=== PATIENT | male | born 1945 | race Caucasian/White ===

== ENCOUNTER 2018-11-28 06:31 | Observation (INO) | payer MEDICARE ==
[~2018-11-28] VITALS: Ht 180.3 cm; Wt 114.7 kg
--- NOTE | ~2018-11-28 | P ---
[facility] [place] [address] PROCEDURE REPORT Name: HANNA ONTIVEROS Room #: 219-P [facility]..#: [id number] Admission: 11/28/18 Attend Phys: Jay Field MD Discharge: Date of : 41 Report #: [id number] THIS REPORT FOR: //name// CC: Jay Field Eugenio Mantilla PREOPERATIVE DIAGNOSES: 1. Atrial fibrillation. 2. Atrial flutter. PROCEDURES PERFORMED: 1. Atrial fibrillation ablation, CPT code 85663. 2. 3D mapping EP, CPT code 81163. 3. Intracardiac echo, CPT code 77490. 4. Focal ablation, CPT code 42404. ANESTHESIA: The patient underwent general anesthesia with no anesthesia related complications. DESCRIPTION OF PROCEDURE: The patient underwent informed consent. We discussed the details of the procedure including the risks, which include but not limited to bleeding, infection, vascular damage, cardiac perforation. He understood these risks and is willing to proceed. The patient was brought to the EP laboratory in fasting and sedated state, prepped and draped in sterile fashion. A Bowling catheter was easily positioned with no issues given his history of ureteral stricture. Next, I obtained access to the right femoral vein x 3, placing an 8, 9 and 7-Portuguese short sheath in the right femoral vein. Given the patient's underlying bradycardia, I decided to put a 5-Portuguese short sheath in the left femoral vein and a quadripolar catheter into the right ventricle for backup pacing if necessary. The patient at baseline was in atrial fibrillation with a ventricular cycle length of 1720 milliseconds, QRS duration 85 milliseconds, QT interval 510 milliseconds. Next, the patient was systemically heparinized and a transseptal was easily performed using an SL1 sheath and a Bottineau needle. I exchanged for the cryo sheath and placed the cryoballoon into the left atrium. Prior to that, I used a Lasso catheter to obtain a 3D geometry of the left atrium and created a voltage map. The patient had a prior ablation performed in 2013 by another customer engagement representative and an initial voltage map showed that all four veins were reconnected. Therefore, I started by isolating the left superior pulmonary vein. This vein isolated during the first freeze within 58 seconds. I performed a 4-minute followed by 3-minute freeze. I then turned my attention to the left inferior pulmonary vein. I performed two 4-minute freezes. The first freeze isolated the vein within 87 seconds. I turned my attention to the right superior pulmonary vein. While isolating the right-sided veins, phrenic nerve pacing was performed with the decapolar catheter placed in the right subclavian [address] [address] PROCEDURE REPORT Name: WESTONHANNA Lakhani Room #: 219-P [facility] M.R.#: [id number] Admission: 11/28/18 Attend Phys: Jay Field MD Discharge: Date of : 41 Report #: [id number]. The right superior pulmonary vein underwent a 4 minute followed by 3-minute freeze. The vein isolated within 25 seconds of the first freeze. I then turned my attention to the left inferior pulmonary vein and performed a single 4-minute freeze as this vein isolated within 30 seconds. Next, I removed the cryoablation balloon and created a voltage map of the left atrium, which showed we had created a wide circumferential ablation of the 4 pulmonary veins. There was still some small area of signal left at the roof region just approximating the left superior pulmonary vein. I therefore placed the cryoballoon back in the left atrium and performed 3 freezes, which were each of 180 seconds duration. I then remapped the left atrium and this demonstrated that we had isolated the roof region as well. As such, the patient underwent cardioversion with restorationism of sinus rhythm. Post-ablation, he was in sinus rhythm with sinus cycle length of 1036 milliseconds, RI interval 200 milliseconds, QRS duration 89 milliseconds, QT interval 510 milliseconds. As such using intracardiac ultrasound, I verified there was no pericardial effusion. The patient received 100 mg of protamine and his sheaths were pulled. A [id number] suture was performed in the right groin region. CONCLUSIONS: 1. Successful AFib ablation with wide circumferential ablation of the pulmonary veins. 2. Successful creation of a left atrial roofline. By: [id number] Jay Field MD /nt
[~2018-11-28 06:31] MED LIST: ACETAMINOPHEN325 M1 PO; ACIPHEX 20 MG T20 MG PO; ALLOPURINOL 30300 M1 PO; AMITRIPTYLINE H10 M3 PO; ARIXTRA; ARIXTRA SQ; ASPIRIN EC325 M1 PO; ASPIRIN EC325 MG PO; ASPIRIN325; ASPIRIN325 PO; ASPIRIN81 M2; AUGMENTIN 875-1 EACH PO; B12 PO; CALCIUM 500 +1 EAC5 PO; CALCIUM CITRAT1 EAC4 PO; CASODEX 50 MG T50 M1 PO; CATAPRES-TTS 10.1 MG TD; CATAPRES0.1 MG PO; CENTRUM SILVER1 EAC2 PO; CEPACOL SORE T1 EAC2 MM; CLONIDINE HCL0.1 MG PO; COLACE100 MG PO; COZAAR 25 MG TA25 M1 PO; CRESTOR10 MG PO; CRESTOR20 MG PO; CRESTOR5 MG PO; CYMBALTA30 MG PO; DEPO-PROVER150 MG/M1 INJECTION; DEPO-PROVERA; DITROPAN XL10 M1 PO; ELIQUIS5 MG PO; FISH OIL 1,001000 M1 PO; FLEXERIL PO; FLONASE 0.05%50 MCG NASAL; FOLBIC RF TABL1 EACH PO; IBUPROFEN 400400 M2 PO; IRON325 PO; KEFLEX500 M1 PO; KLOR-CON 1010 MEQ PO; KLOR-CON M2020 MEQ PO; LASIX 20 MG TAB20 MG PO; LISINOPRIL20 MG PO; LISINOPRIL5 MG PO; LIVALO2 MG PO; LUNESTA2 MG PO; LUPRON DEPOT11.25 MG IM; LUPRON DEPOT45 MG; LUPRON IJ; LYRICA 75 MG CA75 MG PO; MACROBID 100 M100 M1 PO; METFORMIN HCL500 MG PO; MIRALAX17 GM PO; MIRAPEX1 MG PO; MORPHINE SULFAT15 M3 PO; MORPHINE SULFAT30 M1 PO; MS CONTIN15 MG PO; MULTAQ400 MG PO; MULTIVITAMINS1 EAC7 PO; NEURONTIN 300300 M1 PO; NITROSTAT0.4 MG SL; NORVASC10 MG PO; NORVASC2.5 MG PO; OMEPRAZOLE40 MG PO; OXYCODONE HCL 55 MG PO; OXYIR5 MG; PACERONE 200 M200 M1 PO; PAXIL20 MG PO; PERCOCET 10-321 EACH PO; PERCOCET 5-3251 EACH; PERCOCET 5-3251 EACH PO; PERCOCET PO; PRADAXA150 MG PO; PROSTATE CANCER; REMERON15 MG PO; ROUVASTATIN PO; RYTHMOL150 MG PO; SORINE 80 MG TA80 M1 PO; STOOL SOFTENER1 EAC2 PO; TOPROL XL25 MG PO; TRAMADOL HCL50 MG PO; TYLENOL325 MG PO; VITAMIN B12 PO; VITAMIN D1000 UNI1 PO; WARFARIN PO; XARELTO10 MG PO; XARELTO15 MG PO; XARELTO20 MG PO; [UNRECOGNIZED DRUG - OTHER] PO
[2018-11-28 07:08] LABS: ABSOLUTE NEUTROPHILS 3.8 thou/uL (1.4-8.2); BASOPHILS 0.6 % (0.0-2.0); EOSINOPHILS 2.1 % (0.0-3.0); HEMATOCRIT 40.9 % (42.0-52.0); HEMOGLOBIN 13.5 gm/dL (14.0-18.0); LYMPHOCYTES 26.7 % (24.0-44.0); MCH 29.3 pg (26.0-34.0); MCHC 33.1 g/dL (28.0-37.0); MCV 88.5 fL (80.0-100.0); MONOCYTES 11.5 % (1.0-8.0); PLATELET COUNT 170 thou/uL (150-400); POLYS 59.1 % (36.0-66.0); RBC 4.62 mil/uL (4.50-6.00); RDW 16.7 % (10.5-14.5); WBC 6.4 thou/uL (4.0-11.0)
[2018-11-28 07:12] VITALS: BP 142/79
[2018-11-28 07:15] LABS: CALCIUM 9.3 mg/dL (8.5-10.1)
[2018-11-28 07:31] LABS: INR 1.1
[2018-11-28 07:43] LABS: APTT 26.1 Seconds (24.5-32.8)
--- NOTE | 2018-11-28 12:15 | NUR ---
RECEIVED FROM [facility] VSS NSR R AND L GROIN SITES WITH NO HEMATOMA, BRUISING, OR DRAINAGE. NO BRUIT HEARD. SEE DATA FLOW SHEET FOR FREQUENT VS AND GROIN CHECKS. PT INSTRUCTED FOR BR X 6 HOURS AND IS AWARE. WILL CONTINUE TO MONITER AND CARE FOR PT PER PLAN PER PLAN OF CARE
[2018-11-28 12:45] VITALS: BP 143/73
--- NOTE | 2018-11-28 15:32 | NUR ---
VSS REMAINS NSR, LUNGS CLEAR, RA SAT IS 96%, R /L GROIN SITES INTACT, NO HEMATOMA. CHÁVEZ INTACT, DRAINING QS, BR MIANTAINED FOR 6 HOURS. WILL CONTINUE TO MONITER AND CARE FOR PTPER PLAN OF CARE
[2018-11-28 15:46] VITALS: BP 137/57
[2018-11-28 17:00] VITALS: BP 140/70
[2018-11-28 19:56] VITALS: BP 114/59
[2018-11-29] VITALS: BP 143/70
--- NOTE | 2018-11-29 04:20 | NUR ---
ASSUMED CARE FROM [facility] AROUND 319. VSS. ASSESSMENT CHARTED. PT DENIES PAIN, SOA, N/V, DIZZINESS. L/R GROIN SITES CDI NO HEMATOMA. SLEEPING WELL. PT HOPEFUL TO D/C EARLY TODAY. WILL CONTINUE TO MONITOR AND WITH POC.
[2018-11-29 05:00] VITALS: BP 126/58
[2018-11-29 07:20] VITALS: BP 137/58
[2018-11-29 08:14] VITALS: BP 126/58
[2018-11-29 08:36] VITALS: BP 137/58
--- NOTE | 2018-11-29 10:19 | NUR ---
0830- PT DISCHARGE INSTRUCTIONS REVIEWED WITH PT, PIV AND A/C TECH REMOVED. BILAT GROIN DRESSINGS WERE REMOVED BY HAND BRIM IRONER, SITES SOFT, DRY, NO HEMATOMA, NO BLEEDING, PULSATILE. PT DENIES ANY MORE QUESTIONS. CALLED TO PICK HIM UP
== END 2018-11-29 09:41 | disposition home or self-care (01) ==
LOC: CATH 06:31 → 2N 13:01 → ENTRNSPT 11-29 09:26 → EDTRNSPTSTS 11-29 09:28 → 2N 11-29 09:41
PROVIDERS: ADMIT Internal Medicine Cardiovascular Disease
DX: I48.0 Paroxysmal atrial fibrillation (principal); I48.92 Unspecified atrial flutter; I10 Essential (primary) hypertension; E11.9 Type 2 diabetes mellitus without complications; G47.33 Obstructive sleep apnea (adult) (pediatric); I49.5 Sick sinus syndrome; Z86.711 Personal history of pulmonary embolism; Z86.73 Personal history of transient ischemic attack (TIA), and cerebral infarction without residual deficits; Z79.899 Other long term (current) drug therapy
CPT/HCPCS: 62110; 62900; 65020; 65040; 70005

== ENCOUNTER → 2019-09-12 | Outpatient (CLI) | payer MEDICARE ==
[~2019-09-12] MED LIST changes: +BENADRYL25 MG PO; +EFFIENT10 MG PO; +FLOMAX0.4 MG PO; +FUROSEMIDE 20 M20 MG; +HYDROXYZINE HCL25 M2 PO; +LASIX 40 MG TAB40 MG PO; +MACROBID 100 M100 MG PO; +MACRODANTIN50 M1 PO; +MELATONIN 10 M1 EACH PO; +NORVASC 2.5 MG2.5 M1 PO; +PROTONIX40 M2 PO
== END ==
LOC: SJCVC 14:52
DX: I48.91 Unspecified atrial fibrillation (principal); R94.31 Abnormal electrocardiogram [ECG] [EKG]; I25.110 Atherosclerotic heart disease of native coronary artery with unstable angina pectoris; E11.9 Type 2 diabetes mellitus without complications; I10 Essential (primary) hypertension; E78.2 Mixed hyperlipidemia; E78.00 Pure hypercholesterolemia, unspecified; K21.9 Gastro-esophageal reflux disease without esophagitis; E66.01 Morbid (severe) obesity due to excess calories; Z82.49 Family history of ischemic heart disease and other diseases of the circulatory system; Z85.46 Personal history of malignant neoplasm of prostate; Z79.899 Other long term (current) drug therapy; Z87.891 Personal history of nicotine dependence